=== PATIENT | female | born 1945 | race Caucasian/White ===

== ENCOUNTER → 2018-05-24 | Outpatient (CLI) | payer OTHER, BC | LOC: RAD 14:20 | DX: N63.20 Unspecified lump in the left breast, unspecified quadrant (principal); R92.1 Mammographic calcification found on diagnostic imaging of breast ==

== ENCOUNTER 2021-04-20 21:39 | Inpatient (IN) | payer OTHER, BC ==
[~2021-04-20] VITALS: Ht 170.2 cm; Wt 112.5 kg
[2021-04-20 21:40] VITALS: BP 142/78
[2021-04-20] MEDS ORDERED: HYDROCODON-ACE1 EAC7 PO (22:04)
[2021-04-20] MEDS ORDERED: CARDIZEM CD 18180 M3 PO (22:05)
[2021-04-20] MEDS ORDERED: CHILDREN'S ASPI81 M1 PO (22:05)
[2021-04-20] MEDS ORDERED: GLIMEPIRIDE4 MG PO (22:06)
[2021-04-20] MEDS ORDERED: LANTUS (22:06)
[2021-04-20] MEDS ORDERED: PREGABALIN50 MG PO (22:07)
[2021-04-20] MEDS ORDERED: MICONAZOLE 745 GM TOP (22:07)
[2021-04-20] MEDS ORDERED: TELMISARTAN-HC1 EAC2 PO (22:08)
[2021-04-20] MEDS ORDERED: ROSUVASTATIN CAL5 MG PO (22:08)
[2021-04-20] MEDS ORDERED: HUMALOG100 UNIT/1 SUBQ (22:09)
--- NOTE | 2021-04-20 22:13 | NUR ---
CALL PLACED TO CHIDI JACQUES, UNKNOWN RELATIONSHIP, MESSAGE LEFT
[2021-04-20 22:14] LABS: ABSOLUTE NEUTROPHILS 9.2 thou/uL (1.4-8.2); BASOPHILS 0.3 % (0.0-2.0); EOSINOPHILS 0.9 % (0.0-3.0); HEMATOCRIT 36.4 % (37.0-47.0); HEMOGLOBIN 12.6 gm/dL (12.0-15.0); LYMPHOCYTES 18.7 % (24.0-44.0); MCHC 34.7 g/dL (28.0-37.0); MCV 95.1 fL (80.0-100.0); MONOCYTES 8.3 % (1.0-8.0); PLATELET COUNT 203 thou/uL (150-400); POLYS 71.8 % (36.0-66.0); RBC 3.82 mil/uL (4.20-5.00); RDW 12.4 % (10.5-14.5); WBC 12.8 thou/uL (4.0-11.0)
[2021-04-20 22:22] LABS: ANION GAP 4 mmol/L (7-16); BUN 26 mg/dL (7-18); CALCIUM 8.1 mg/dL (8.5-10.1); CHLORIDE 104 mmol/L (98-107); CO2 29 mmol/L (21-32); CREATININE 1.3 mg/dL (0.6-1.0); GLUCOSE 311 mg/dL (74-106); POTASSIUM 4.2 mmol/L (3.5-5.1); SODIUM 137 mmol/L (136-145)
[2021-04-20 22:32] LABS: ALBUMIN 2.6 g/dL (3.4-5.0); SGOT 12 U/L (15-37); SGPT 25 U/L (14-59); TOTAL BILIRUBIN 0.3 mg/dL (0.2-1.0); TOTAL PROTEIN 6.4 g/dL (6.4-8.2); TROPONIN-I <0.06 ng/mL (<0.06)
[2021-04-21] VITALS (7 sets, daily range): BP systolic 147–161; BP diastolic 58–85
[2021-04-21 01:07] LABS: INR 0.91
--- NOTE | 2021-04-21 06:41 | NUR ---
PT ARRIVED FROM ER VIA CART. PT IS A/0X4 AND USES WHEELCHAIR FOR GETTING AROUND. HEPARIN DRIP STARTED IN ER AT 15ML. MED REC COMPLETED, INTERVENTIONS INITIATED, CARE PLAN STARTED. CONSULT CALLED IN TO [employer]. EXTERNAL CATH IN PLACE.
--- NOTE | 2021-04-21 07:35 | EKG ---
[address] [address] ELECTROCARDIOGRAM REPORT Name: DANY JIMENEZ Room #: 350-P ADM IN M.R.#: [id number] Admission: 04/21/21 Attend Phys: Mars Severino MD Discharge: Date of : 47 Report #: [id number] [facility] ED Test Date: 2021-04-20 Test Time: 21:46:11 Pat Name: DANY JIMENEZ Department: Room: 350 Gender: F Customer Accounts Advisor: : [id number] Requested By: Phoenix Spencer Order Number: [id number] MD: Logan Farrar Measurements Intervals Fraser Rate: 88 P: 37 IL: 153 QRS: 8 QRSD: 125 T: 157 QT: 402 QTc: 487 Interpretive Statements Sinus rhythm Left bundle branch block No previous ECG available for comparison Electronically Signed On 04-21-2021 7:35:15 CDT by Logan Farrar [email or web address] <ELECTRONICALLY SIGNED> By: Logan Farrar MD, [facility] 04/21/21 0735 2146 2146 Loagn Farrar MD, FACC /EPI
[2021-04-21 08:24] LABS: CHOLESTEROL 166 mg/dL (<200); HDL CHOLESTEROL 70 mg/dL (>40); LDL CHOLESTEROL 87 mg/dL (<100); TC:HDL 2.4 Ratio (Not establshd); TRIGLYCERIDE 46 mg/dL (<150); VLDL 9 mg/dL (<40)
--- NOTE | 2021-04-21 12:49 | 2DMMODE ---
[facility] [place] [address] 2 D/M-MODE ECHOCARDIOGRAM Name: DANY JIMENEZ Room #: 350-P ADM IN M.R.#: [id number] Admission: 04/21/21 Attend Phys: Mars Severino MD Discharge: Date of : 47 Report #: [id number] THIS REPORT FOR: cc: Antione Cook MD, Ammar MD Santiago, Patrick MD [facility] ~ APPROVED REPORT Study performed: 04/21/2021 11:35:45 EXAM: Comprehensive 2D, Doppler, and color-flow Echocardiogram Patient Location: Bedside Room #: 350 Status: routine BSA: 2.15 HR: 64 bpm BP: 156/85 mmHg Rhythm: NSR Other Information Study Quality: Good Indications Abnormal ECG Diabetes Dyspnea Chest Pain 2D Dimensions IVC: 28.00 mm Volumes Left Atrial Volume (Systole) Single Plane 4CH: 39.96 mL Single Plane 2CH: 45.78 mL LA ESV Index: 23.00 mL/m2 Aortic Valve AoV Peak Marlon.: 1.82 m/s AO Peak Gr.: 13.28 mmHg LVOT Max P.26 mmHg LVOT Max V: 1.25 m/s Mitral Valve E/A Ratio: 0.6 MV Decel. Time: 318.71 ms [facility] [address] [place] [address] 2 D/M-MODE ECHOCARDIOGRAM Name: DANY JIMENEZ Room #: 350-P ADM IN M.R.#: [id number] Admission: 04/21/21 Attend Phys: Amaury Alvarado Discharge: Date of : 47 Report #: [id number] E Max Marlon.: 0.69 m/s MV A Marlon.: 1.22 m/s MV PHT: 92.43 ms IVRT: 147.64 ms Pulmonary Valve PV Peak Marlon.: 1.40 m/s PV Peak Gr.: 7.82 mmHg Pulmonary Vein P Vein S: 0.46 m/s P Vein A: 0.44 m/s P Vein D: 0.35 m/s P Vein A Dur.: 124.6 msec P Vein S/D Ratio: 1.31 Tricuspid Valve TR Peak Marlon.: 2.93 m/s TR Peak Gr.: 34.29 mmHg PA Pressure: 44.00 mmHg Left Ventricle The left ventricle is normal size. There is normal LV segmental wall motion. Mild concentric left ventricular hypertrophy. The left ventricular systolic function is normal. The left ventricular ejection fraction is within the normal range. LVEF is >55%. Grade I - abnormal relaxation pattern. Right Ventricle The right ventricle is normal size. The right ventricular systolic function is normal. Atria The left atrium size is normal. The right atrium size is normal. Aortic Valve The aortic valve is normal in structure. No aortic regurgitation is present. There is no aortic valvular stenosis. Mitral Valve The mitral valve is normal in structure. There is no mitral valve regurgitation noted. No evidence of mitral valve stenosis. Tricuspid Valve The tricuspid valve is normal in structure. There is mild tricuspid regurgitation. Estimated PAP 44 mmHg. There is moderate pulmonary hypertension. [facility] [address] [place] [address] 2 D/M-MODE ECHOCARDIOGRAM Name: DANY JIMENEZ Room #: 350-P ADM IN M.R.#: [id number] Admission: 04/21/21 Attend Phys: Amaury Alvarado Discharge: Date of : 47 Report #: [id number] Pulmonic Valve The pulmonary valve is normal in structure. There is no pulmonic valvular regurgitation. Great Vessels The aortic root is normal in size. IVC is dilated and collapses >50% with inspiration. Pericardium There is no pericardial effusion. <Conclusion> Normal left ventricular size with mild concentric hypertrophy Ejection fraction 55% Grade 1 diastolic dysfunction Normal right ventricular size/function Normal atrial size Color-flow Doppler study was performed of the aortic/mitral/tricuspid/pulmonary valve Normal aortic/mitral valve structure and function Mild tricuspid valve insufficiency Pulmonary systolic pressure estimated 44 mmHg No pericardial effusion Normal aortic root size. <ELECTRONICALLY SIGNED> By: Logan Farrar MD, [facility] 04/21/21 1249 1249 1249 Logan Farrar MD, FACC /INF
--- NOTE | 2021-04-21 13:51 | NUR ---
INITIAL ASSESSMENT: Received consult. MILLY reviewed chart and spoke with nursing and attending physician. Pt was admitted from [facility] due to chest pain. Cardiology consulted. Pt placed on heparin gtt. Pt to have VQ scan today. Pt with hx multiple sclerosis, dystonia, spinal stenosis. Therapies ordered to evaluate pt. MILLY met with pt at bedside. Introduced role of SW. Pt is alert/orientated x 4. Pt has been at [facility] since 04/11/2021. Pt was hospitalized at [facility] prior to going to [facility]. Pt states that she normally lives at home with her , who has Alzheimer's. Pt's niece is their caregiver. Pt also has two sons who are involved in their care. Pt has a cane, walker and w/c. There is a ramp into their home. Pt's PCP is Dr. Ignacio Landaverde. Pt denies having any services. Pt asked about going to rehab at [facility]. SW explained the admission criteria and amount of therapy needed. Pt verbalized understanding and would like to be evaluated. MILLY discussed with attending physician and rn rehabilitation. Consult ordered. MILLY spoke with Diann in admissions at [facility]. Update provided. [facility] is able to accept pt back to [facility] if needed. Awaiting input from . MILLY is following to assist as needed with discharge planning.
--- NOTE | 2021-04-21 18:27 | NUR ---
ASSUMED PATIENT CARE AT 0700. A/O X4. TOLERATED ON RA. ON HEPRAIN GTT. NO BLEEDING NOTED. GENERLIZED WEAKNESS. BLE 2+ EDEMA. SOLWLY TOWARDS TO POC GOALS.
[2021-04-22 00:06] LABS: GLYCOHEMOGLOBIN (HGB A1C) 12.6 % (4.8-5.6)
[2021-04-22 01:07] VITALS: BP 154/76
[2021-04-22 04:58] VITALS: BP 144/79
[2021-04-22 07:45] VITALS: BP 132/96
--- NOTE | 2021-04-22 07:51 | NUR ---
MALIHAA AND NORCO FROM HOME MEDICATIONS RESTARTED AT REQUEST OF PT. PT STATED SHE FINALLY GOT SOME GOOD RELIEF WELL SLEEP. A1C LAB RESULTED IN 12.6. HEPARIN DRIP AT MAINTENANCE LEVEL OF 15ML/HR. VERY PLEASANT LADY TO HELP MOVE TO DC GOALS.
[2021-04-22 10:00] VITALS: BP 132/96
--- NOTE | 2021-04-22 11:58 | NUR ---
MILLY reviewed chart and spoke with nursing and attending physician. Pt is progressing towards goals for discharge. Heparin gtt stopped today. Pt to have stress test tomorrow. [facility] is able to accept pt when medically stable for discharge. MILLY met with pt at bedside to discuss [facility] acceptance. Pt requests to tour [facility] before she makes her decision if she wants to go to [facility]. Pt states that she is ready to go home, but knows that rehab would be beneficial. MILLY contacted [facility], who will take pt to [facility] this afternoon. MILLY is following to assist as needed with discharge planning.
[2021-04-22 16:03] VITALS: BP 133/72
[2021-04-22 19:15] VITALS: BP 151/83
[2021-04-23 05:00] VITALS: BP 154/64
--- NOTE | 2021-04-23 06:30 | NUR ---
PT NPO SINCE 2399. ACCU CHECK. PAIN MANAGED WITH HYDROCODONE AND LYRICA. CALL LIGHT WITHIN REACH.
[2021-04-23 07:14] VITALS: BP 150/76
--- NOTE | 2021-04-23 08:55 | NUR ---
Received awake on bed. On nothing per orem- pt informed and aware. On telemetry; no complains and signs of chest pain, crushing sensation and heaviness. On room air; with PRN oxygen. No nausea, no vomiting and no abdominal pain noted. On blood sugar monitoring, taken and recorded accordingly. With external fletcher in place- output measured and recorded accordingly; able to use bedside commode as well. With SL at L AC. With bilat LE- kept elevated. Pt scheduled for nuclear stress test today- a/w [facility] staff re: time of procedure; pt updated. To continue monitoring patient.
[2021-04-23] MEDS ORDERED: PROTONIX40 M2 PO (10:35)
[2021-04-23] MEDS ORDERED: MIRALAX17 GM PO (10:35)
[2021-04-23 10:45] VITALS: BP 150/76
--- NOTE | 2021-04-23 10:46 | NUR ---
MILLY reviewed chart and spoke with nursing and attending physician. Pt is currently off the unit having stress test. If stress test is negative, pt will discharge home today with services. Pt toured [facility] yesterday and has decided that she wants to go home with [facility]. MILLY faxed HH referral to [facility] and spoke with Ginny in intake to notify of new referral. Awaiting final discharge orders/summary at this time. MILLY is following to assist as needed with discharge planning.
[2021-04-23] MEDS ORDERED: PREGABALIN50 MG PO (13:46)
[2021-04-23] MEDS ORDERED: HYDROCODON-ACE1 EAC7 PO (13:47)
[2021-04-23 13:48] VITALS: BP 141/68
== END 2021-04-23 14:48 | disposition home or self-care (01) | DRG 291 ==
LOC: ER 21:39 → 3W 04-21 00:55 → EROBS 04-21 00:55 → 3W 04-21 01:44
PROVIDERS: Emergency Medicine; Nurse Practitioner Family; ADMIT Hospitalist; ATTEND Hospitalist
DX: I50.31 Acute diastolic (congestive) heart failure (principal); E43 Unspecified severe protein-calorie malnutrition; R07.9 Chest pain, unspecified; R13.10 Dysphagia, unspecified; E78.5 Hyperlipidemia, unspecified; I48.91 Unspecified atrial fibrillation; E11.65 Type 2 diabetes mellitus with hyperglycemia; G35 Multiple sclerosis; G24.9 Dystonia, unspecified; E11.42 Type 2 diabetes mellitus with diabetic polyneuropathy; I48.0 Paroxysmal atrial fibrillation; M62.84 Sarcopenia; M48.02 Spinal stenosis, cervical region; R53.81 Other malaise; F41.9 Anxiety disorder, unspecified; Z88.8 Allergy status to other drugs, medicaments and biological substances; Z90.710 Acquired absence of both cervix and uterus; Z82.49 Family history of ischemic heart disease and other diseases of the circulatory system; Z91.041 Radiographic dye allergy status; Z86.711 Personal history of pulmonary embolism; K21.9 Gastro-esophageal reflux disease without esophagitis
CPT/HCPCS: 10879